=== PATIENT | female | born 1940 | race Caucasian/White ===

== ENCOUNTER 2018-05-09 10:57 | Inpatient (IN) | payer MEDICARE, OTHER ==
[~2018-05-09] VITALS: Ht 152.4 cm; Wt 61.9 kg
[~2018-05-09 10:57] MED LIST: ALPR0.5T6 PO; ATOR10TA65 PO; CALC1TAB93 PO; CARV12.579 PO; ENAL10TA PO; ESOM40CA PO; EZET10TA31 PO; FURO40TA4 PO; ISOS60TA PO; LORA-186 PO; MECL-77 PO; MULT-860 PO; NASO17 NASAL; RANI300T3 PO; SOLI5TAB2 PO; TRAM50TA PO
[2018-05-09] MEDS ORDERED: ONDANSETRON 4 MG INJ IV STA (11:18)
[2018-05-09] MEDS ORDERED: IOHEXOL 100 ML ONE (14:35)
[2018-05-09] MEDS ORDERED: SOD CHLORIDE 0.9% 100 ML ONE (14:35)
[2018-05-09] MEDS ORDERED: LOSA50TA14 PO (15:03)
[2018-05-09] MEDS ORDERED: ALPR0.5T6 PO (15:03)
[2018-05-09] MEDS ORDERED: WARF2TAB PO (15:04)
[2018-05-09] MEDS ORDERED: FURO40TA4 PO (15:05)
[2018-05-09] MEDS ORDERED: ONDA4TAB13 PO (15:05)
[2018-05-09] MEDS ORDERED: RANI300T PO (15:05)
[2018-05-09] MEDS ORDERED: CARV12.579 PO (15:06)
[2018-05-09] MEDS ORDERED: ALBU18HF INHALATION (15:06)
[2018-05-09] MEDS ORDERED: FLUT16SP17 NASAL (15:06)
[2018-05-09] MEDS ORDERED: EZET10TA31 PO (15:07)
[2018-05-09] MEDS ORDERED: ESOM40CA PO (15:07)
[2018-05-09] MEDS ORDERED: ATOR20TA38 PO (15:07)
[2018-05-09] MEDS ORDERED: FLUT1AER INHALATION (15:08)
[2018-05-09] MEDS ORDERED: SOLI5TAB2 PO (15:08)
[2018-05-09] MEDS ORDERED: POTA8CAP PO (15:09)
[2018-05-09] MEDS ORDERED: TRAM1TAB58 PO (15:11)
[2018-05-09] MEDS ORDERED: MECL-77 PO (15:12)
--- NOTE | 2018-05-09 15:55 | ERD ---
ER Documentation Chief Complaint Chief Complaint BIB RA FOR EVAL OF [place] STARTED THIS AM HPI This is an 78-year-old female who presents with intermittent left-sided weakness, as well as nausea and vomiting which started this morning, she also endorses a left-sided headache. 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 She denies visual changes, she has had no dysarthria, no dysphasia. ROS All systems reviewed and are negative except as per history of present illness. Medications Home Meds Reported Medications Meclizine Hcl* (Meclizine Hcl*) 25 Mg Tablet, 25 MG PO Q12H PRN for DIZZINESS, TAB 05/09/18 Tramadol HCl/Acetaminophen (Ultracet Tablet) 1 Each Tablet, 1 EACH PO Q6H PRN for PAIN, TAB 05/09/18 Potassium Chloride* (Potassium Chloride*) 8 Meq Capsule.er, 8 MEQ PO DAILY, CAP 05/09/18 Fluticasone-Vilanterol (Breo Ellipta Inhaler) 100-25 Mcg/Actuation Aer.pow.ba, 1 PUFF INHALATION DAILY, #1 INHALER 05/09/18 Solifenacin* (Vesicare*) 5 Mg Tablet, 5 MG PO DAILY, TAB 05/09/18 Ezetimibe* (Zetia*) 10 Mg Tablet, 10 MG PO HS, TAB 05/09/18 Esomeprazole Mag Trihydrate (Nexium) 40 Mg Capsule.dr, 40 MG PO DAILY, #30 CAP 05/09/18 Atorvastatin Calcium* (Atorvastatin Calcium*) 20 Mg Tablet, 20 MG PO QHS, #30 TAB 05/09/18 Albuterol Sulfate* (Ventolin HFA*) 18 Gm Hfa.aer.ad, 2 PUFF INHALATION Q4H, #1 INHALER 05/09/18 Carvedilol* (Carvedilol*) 12.5 Mg Tablet, 12.5 MG PO BID, #60 TAB 05/09/18 Fluticasone Propionate* (Fluticasone Propionate* Nasal) 50 Mcg/[place] - 16 Gm [place].susp, 1 SPRAY NASAL DAILY, #1 BOTTLE TO EACH NOSTRIL 05/09/18 Ondansetron Hcl* (Zofran*) 4 Mg Tab, 4 MG PO Q6H PRN for NAUSEA AND OR VOMITING, TAB 05/09/18 Ranitidine Hcl* (Ranitidine Hcl*) 300 Mg Tablet, 300 MG PO HS, #30 TAB 05/09/18 Furosemide* (Furosemide*) 40 Mg Tablet, 40 MG PO DAILY, TAB 05/09/18 Warfarin Sodium* (Coumadin*) 2 Mg Tablet, 3 MG PO DAILY, TAB 05/09/18 Alprazolam* (Alprazolam*) 0.5 Mg Tablet, 0.5 MG PO QHS PRN for ANXIETY, TAB 05/09/18 Losartan Potassium* (Losartan Potassium*) 50 Mg Tablet, 50 MG PO BID, TAB 05/09/18 Discontinued Reported Medications Mu-Vits-Min Th/Lycopene/Lutein (CENTRUM SILVER TABLET) 1 Each Tablet, 1 EACH PO DAILY, TAB 04/14/15 Calcium Carbonate/Vitamin D3 (OYSTER SHELL 500 MG + VIT D TB) 1 Each Tablet, 1 EACH PO DAILY, TAB 04/14/15 Ezetimibe* (Zetia*) 10 Mg Tablet, 10 MG PO DAILY, TAB 04/14/15 Alprazolam* (Alprazolam*) 0.5 Mg Tablet, 0.5 MG PO QHS PRN for SLEEP, TAB 04/14/15 Tramadol Hcl* (Ultram*) 50 Mg Tablet, 50 MG PO Q6H PRN for PAIN, TAB 04/14/15 Enalapril Maleate* (Enalapril Maleate*) 10 Mg Tablet, 10 MG PO BID, TAB 04/14/15 Loratadine* (Claritin*) 10 Mg Tablet, 10 MG PO DAILY, TAB 04/14/15 Solifenacin* (Vesicare*) 5 Mg Tablet, 5 MG PO DAILY, TAB 04/14/15 Mometasone Furoate* (Nasonex*) 50 Mcg/[place] - 17 Gm [place].pump, 1 SPRAY NASAL DAILY, SPRAY 04/14/15 Isosorbide Mononitrate* (Isosorbide Mononitrate*) 60 Mg Tab.er.24h, 60 MG PO DAILY, TAB 04/14/15 Esomeprazole Mag Trihydrate (Nexium) 40 Mg Capsule.dr, 40 MG PO DAILY, #30 CAP 04/14/15 Meclizine Hcl* (Meclizine Hcl*) 25 Mg Tablet, 25 MG PO BID PRN for dizzy, TAB 04/14/15 Carvedilol* (Carvedilol*) 12.5 Mg Tablet, 12.5 MG PO BID, TAB 04/14/15 Atorvastatin Calcium (Atorvastatin Calcium) 10 Mg Tablet, 20 MG PO QHS, #30 TAB 04/14/15 Furosemide (Lasix) 40 Mg Tab, 40 MG PO DAILY 06/23/11 Ranitidine Hcl* (Zantac*) 300 Mg Tab, 300 MG PO DAILY, 0 Refills 10/27/10 Allergies Allergies: Coded Allergies: No Known Allergy (Verified , 05/09/18) PMhx/Soc History of Surgery: Yes (cholecystectomy, pacemaker placment, CABG) Anesthesia Reaction: No Hx Neurological Disorder: Yes (BLUNT HEAD TRAUMA, SYNCOPE) Hx Respiratory Disorders: No Hx Cardiac Disorders: Yes (CHF, RECENT M.I., AFIB, BRADYCARDIA, ANGINA, ISCHEMIC HEART DISEASE, HTN) Hx Psychiatric Problems: No Hx Miscellaneous Medical Probl: Yes (HTN, CHF, OA, recent PR, CAD, hypercholesterlemia, Afib) Hx Alcohol Use: No Hx Substance Use: No Hx Tobacco Use: No Smoking Status: Never smoker Physical Exam Vitals Vital Signs Date Temp Pulse Resp B/P (MAP) Pulse Ox O2 O2 Flow FiO2 Time Delivery Rate 05/09/18 76 18 144/94 100 Room Air 13:13 (111) 05/09/18 98.6 74 16 186/81 96 11:03 (116) Physical Exam Const: No acute distress Head: Atraumatic Eyes: Normal Conjunctiva ENT: Normal External Ears, Nose and Mouth. Neck: Full range of motion. No meningismus. Resp: Clear to auscultation bilaterally Cardio: Regular rate and rhythm, no murmurs Abd: Soft, non tender, non distended. Normal bowel sounds Skin: No petechiae or rashes Back: No midline or flank tenderness Ext: No cyanosis, or edema Neur: Awake and alert, cranial nerves II through XII intact, strength 4 out of 5 in the lower extremity, normal finger to nose, no pronator drift Psych: Normal Mood and Affect Result Diagram: 05/09/18 1130 05/09/18 1130 Results 24 hrs Laboratory Tests Test 05/09/18 11:30 05/09/18 14:05 White Blood Count 5.2 10^3/ul Red Blood Count 4.23 10^6/ul Hemoglobin 13.1 g/dl Hematocrit 39.4 % Mean Corpuscular Volume 93.1 fl Mean Corpuscular Hemoglobin 31.0 pg Mean Corpuscular Hemoglobin Concent 33.2 g/dl Red Cell Distribution Width 12.7 % Platelet Count 157 10^3/UL Mean Platelet Volume 11.2 fl Immature Granulocytes % 0.200 % Neutrophils % 75.0 % Lymphocytes % 14.5 % Monocytes % 8.8 % Eosinophils % 1.1 % Basophils % 0.4 % Nucleated Red Blood Cells % 0.0 /100WBC Immature Granulocytes # 0.010 10^3/ul Neutrophils # 3.9 10^3/ul Lymphocytes # 0.8 10^3/ul Monocytes # 0.5 10^3/ul Eosinophils # 0.1 10^3/ul Basophils # 0.0 10^3/ul Nucleated Red Blood Cells # 0.0 10^3/ul Prothrombin Time 14.6 Sec Prothrombin Time Ratio 1.1 INR International Normalized Ratio 1.13 Sodium Level 143 mmol/L Potassium Level 3.8 mmol/L Chloride Level 105 mmol/L Carbon Dioxide Level 29 mmol/L Anion Gap 9 Blood Urea Nitrogen 12 mg/dl Creatinine 0.78 mg/dl Est Glomerular Filtrat Rate mL/min mL/min Glucose Level 130 mg/dl Calcium Level 10.1 mg/dl Total Bilirubin 1.0 mg/dl Direct Bilirubin 0.00 mg/dl Indirect Bilirubin 1.0 mg/dl Aspartate Amino Transf (AST/SGOT) 39 IU/L Alanine Aminotransferase (ALT/SGPT) 29 IU/L Alkaline Phosphatase 93 IU/L Troponin I 0.015 ng/ml Total Protein 8.6 g/dl Albumin 5.0 g/dl Globulin 3.60 g/dl Albumin/Globulin Ratio 1.38 Lipase 64 U/L Urine Color YELLOW Urine Clarity CLEAR Urine pH 7.0 Urine Specific [place] 1.003 Urine Ketones NEGATIVE mg/dL Urine Nitrite NEGATIVE mg/dL Urine Bilirubin NEGATIVE mg/dL Urine Urobilinogen NEGATIVE mg/dL Urine Leukocyte Esterase NEGATIVE Roberta/ul Urine Hemoglobin NEGATIVE mg/dL Urine Glucose NEGATIVE mg/dL Urine Total Protein NEGATIVE mg/dl Current Medications Medications Dose Sig/Erika Start Time Status Last (Trade) Ordered Route PRN Stop Time Admin Dose Reason Admin Ondansetron 4 mg ONCE STAT 05/09/18 DC 05/09/18 HCl (Zofran IV 11:18 05/09/18 12:24 Inj) 11:19 IV Flush 10 ml STK-MED 05/09/18 DC 05/09/18 (NS 10 ml) ONCE .ROUTE 14:35 05/09/18 15:02 14:36 Sodium 100 ml @ ud STK-MED 05/09/18 DC 05/09/18 Chloride ONCE .ROUTE 14:35 05/09/18 15:02 14:36 Iohexol 100 ml @ ud STK-MED 05/09/18 DC 05/09/18 ONCE .ROUTE 14:35 05/09/18 15:02 14:36 Procedures/MDM Is an 78-year-old female presents with headache and intermittent left-sided weakness. The patient had some weakness noted in her left lower extremity, although she does state that she has some residual weakness from a stroke. Her cardiac workup was overall unremarkable, her headache was not sudden in onset, and at this point I do not suspect subarachnoid hemorrhage. Her CT brain and CTA were both negative for acute findings. Based on his and physical, her differential diagnosis includes complex migraine, versus re-expression of old stroke, versus TIA. Given her significant risk factors she will be admitted to telemetry, I spoke with Dr. Sanon who will be the admitting physician. EKG: Rate/Rhythm: Atrial fibrillation with normal rate QRS, ST, T-waves: No changes consistent w/ acute ischemia Impression: No evidence of ischemia or arrhythmia Departure Diagnosis: Primary Impression: Headache Headache type: unspecified Headache chronicity pattern: acute headache Intractability: not intractable Qualified Codes: R51 - Headache Additional Impressions: Weakness Hypertension Hypertension type: essential hypertension Qualified Codes: I10 - Essential (primary) hypertension Condition: Stable MARTHA MOON MD May 09, 2018 15:55
[2018-05-09 19:42] VITALS: BP 198/95; PULSE 92; RESP 18
[2018-05-09 20:00] VITALS: PULSE 84
[2018-05-09 20:06] VITALS: Ht 152.4 cm; Wt 61.9 kg
[2018-05-09] MEDS ORDERED: LABETALOL HCL 20MG INJ IV PRN (22:00)
[2018-05-09] MEDS ORDERED: CLONIDINE 0.1 MG/24 HR PATCH TRANSDERM SCH (22:00)
[2018-05-09] MEDS ORDERED: AMLODIPINE 5 MG TAB PO ONE (22:17)
[2018-05-09 23:43] VITALS: BP 168/81; PULSE 78; RESP 19
[2018-05-10] VITALS (13 sets, daily range): BP systolic 111–175; BP diastolic 61–88; PULSE 66–93; RESP 17–19
[2018-05-10] MEDS ORDERED: MECLIZINE 25 MG TAB PO PRN (01:00)
[2018-05-10] MEDS ORDERED: ALPRAZOLAM 0.5 MG TAB PO PRN (01:00)
[2018-05-10] MEDS ORDERED: traMADol-APAP 37.5-325 1 TAB PO PRN (01:00)
[2018-05-10] MEDS: ALBUTEROL HFA 8 GM INHALER INH SCH ×6 (01:00→21:00)
[2018-05-10] MEDS ORDERED: ONDANSETRON 4 MG TAB PO PRN (01:00)
[2018-05-10] MEDS ORDERED: ENOXAPARIN 40 MG/0.4 ML SYG SC ONE (01:30)
[2018-05-10] MEDS: PANTOPRAZOLE (EC) 40 MG TAB PO SCH (07:24)
[2018-05-10] MEDS: LOSARTAN 50 MG TAB PO SCH ×2 (08:07→20:12)
[2018-05-10] MEDS: SOLIFENACIN 5 MG TAB PO SCH (08:08)
[2018-05-10] MEDS: FUROSEMIDE 40 MG TAB PO SCH (08:08)
[2018-05-10] MEDS: POTASSIUM CHLORIDE (SR) 8 MEQ CAP PO SCH (08:08)
[2018-05-10] MEDS: AMLODIPINE 5 MG TAB PO SCH ×2 (08:09→20:12)
[2018-05-10] MEDS: FLUTICASONE 0.05% 16 GM NAS SPRAY NASAL SCH (08:17)
--- NOTE | 2018-05-10 08:58 | CONS ---
Date/Time of Note Date/Time of Note DATE: 05/10/18 TIME: 08:58 Assessment/Plan Assessment/Plan Result Diagram: 05/10/18 0518 05/09/18 1130 Results 24hrs Laboratory Tests Test 05/09/18 11:30 05/09/18 14:05 05/10/18 01:22 05/10/18 05:18 White Blood Count 5.2 5.8 Red Blood Count 4.23 4.08 L Hemoglobin 13.1 12.3 Hematocrit 39.4 37.6 Mean Corpuscular Volume 93.1 92.2 Mean Corpuscular 31.0 30.1 Hemoglobin Mean Corpuscular 33.2 32.7 Hemoglobin Concent Red Cell Distribution 12.7 12.8 Width Platelet Count 157 160 Mean Platelet Volume 11.2 H 11.3 H Immature Granulocytes % 0.200 0.300 Neutrophils % 75.0 63.5 Lymphocytes % 14.5 L 23.3 Monocytes % 8.8 11.2 H Eosinophils % 1.1 1.4 Basophils % 0.4 0.3 Nucleated Red Blood 0.0 0.0 Cells % Immature Granulocytes # 0.010 0.020 Neutrophils # 3.9 3.7 Lymphocytes # 0.8 1.4 Monocytes # 0.5 0.7 Eosinophils # 0.1 0.1 Basophils # 0.0 0.0 Nucleated Red Blood 0.0 0.0 Cells # Prothrombin Time 14.6 15.5 H Prothrombin Time Ratio 1.1 1.2 INR International 1.13 1.22 Normalized Ratio Sodium Level 143 Potassium Level 3.8 Chloride Level 105 Carbon Dioxide Level 29 Anion Gap 9 Blood Urea Nitrogen 12 Creatinine 0.78 Est Glomerular Filtrat Rate mL/min Glucose Level 130 Calcium Level 10.1 Total Bilirubin 1.0 Direct Bilirubin 0.00 Indirect Bilirubin 1.0 Aspartate Amino 39 Transf (AST/SGOT) Alanine 29 Aminotransferase (ALT/SG PT) Alkaline Phosphatase 93 Troponin I 0.015 Total Protein 8.6 H Albumin 5.0 H Globulin 3.60 H Albumin/Globulin Ratio 1.38 Lipase 64 Urine Color YELLOW Urine Clarity CLEAR Urine pH 7.0 Urine Specific [place] 1.003 Urine Ketones NEGATIVE Urine Nitrite NEGATIVE Urine Bilirubin NEGATIVE Urine Urobilinogen NEGATIVE Urine Leukocyte Esterase NEGATIVE Urine Hemoglobin NEGATIVE Urine Glucose NEGATIVE Urine Total Protein NEGATIVE Magnesium Level 2.1 Iron Level 84 Total Iron Binding 322 Capacity Percent Iron Saturation 26 Thyroid Stimulating 1.270 Hormone (TSH) B-Type Natriuretic 1500 H Peptide Consultation Date/Type/Reason Admit Date/Time May 09, 2018 at 14:45 Past Medical History Medications Current Medications Clonidine HCl (Catapres-Tts 1 Patch) 1 patch Q7D TRANSDERM Last administered on 05/09/18at 22:44; Admin Dose 1 PATCH; Start 05/09/18 at 22:00 Amlodipine Besylate (Norvasc) 5 mg BID PO Last administered on 05/10/18at 08:09; Admin Dose 5 MG; Start 05/10/18 at 09:00 Labetalol HCl (Labetalol) 10 mg Q1H PRN IV ELEVATED SYSTOLIC BP Last adminis tered on 05/10/18at 00:38; Admin Dose 10 MG; Start 05/09/18 at 22:00 Albuterol (Ventolin Hfa) 2 puff Q4H RESP THERAPY INH ; Start 05/10/18 at 01:00 Alprazolam (Xanax) 0.5 mg QHS PRN PO ANXIETY; Start 05/10/18 at 01:00 Atorvastatin Calcium (Lipitor) 20 mg QHS PO ; Start 05/10/18 at 21:00 Carvedilol (Coreg) 12.5 mg BID PO Last administered on 05/10/18at 08:08; Admin Dose 12.5 MG; Start 05/10/18 at 09:00 EZETIMIBE (Zetia) 10 mg HS PO ; Start 05/10/18 at 21:00 Fluticasone Propionate (Flonase 0.05% Nasal) 1 spray DAILY NASAL ; Start 05/10/18 at 09:00 Furosemide (Lasix) 40 mg DAILY PO Last administered on 05/10/18at 08:08; Admin Dose 40 MG; Start 05/10/18 at 09:00 Losartan Potassium (Cozaar) 50 mg BID PO Last administered on 05/10/18at 08:07; Admin Dose 50 MG; Start 05/10/18 at 09:00 Meclizine HCl (Antivert) 25 mg Q12H PRN PO DIZZINESS; Start 05/10/18 at 01:00 Ondansetron HCl (Zofran Tab) 4 mg Q6H PRN PO NAUSEA AND/OR VOMITING; Start 05/10/18 at 01:00 Potassium Chloride (Micro-K) 8 meq DAILY PO Last administered on 05/10/18at 08:08; Admin Dose 8 MEQ; Start 05/10/18 at 09:00 Solifenacin (Vesicare) 5 mg DAILY PO Last administered on 05/10/18at 08:08; Admin Dose 5 MG; Start 05/10/18 at 09:00 Tramadol HCl (Ultracet) 1 tab Q12H PRN PO PAIN; Start 05/10/18 at 01:00 Pantoprazole (Protonix Tab) 40 mg DAILY@06 PO Last administered on 05/10/18at 07:24; Admin Dose 40 MG; Start 05/10/18 at 06:00 Allergies: Coded Allergies: No Known Allergy (Verified , 05/09/18) Past Surgical History Past Surgical Hx: other Social History Smoking Status: Never smoker Exam/Review of Systems Vital Signs Vitals Vital Signs Date Temp Pulse Resp B/P (MAP) Pulse Ox O2 O2 Flow FiO2 Time Delivery Rate 05/10/18 83 08:50 05/10/18 98.9 18 175/88 93 07:20 (117) 05/09/18 Room Air 18:30 Intake and Output 05/09/18 05/09/18 05/10/18 1515:00 23:00 07:00 IntakeIntake Total 100 ml OutputOutput Total 650 ml BalanceBalance -550 ml Medications Medications Current Medications Clonidine HCl (Catapres-Tts 1 Patch) 1 patch Q7D TRANSDERM Last administered on 05/09/18at 22:44; Admin Dose 1 PATCH; Start 05/09/18 at 22:00 Amlodipine Besylate (Norvasc) 5 mg BID PO Last administered on 05/10/18at 08:09; Admin Dose 5 MG; Start 05/10/18 at 09:00 Labetalol HCl (Labetalol) 10 mg Q1H PRN IV ELEVATED SYSTOLIC BP Last administered on 05/10/18at 00:38; Admin Dose 10 MG; Start 05/09/18 at 22:00 Albuterol (Ventolin Hfa) 2 puff Q4H RESP THERAPY INH ; Start 05/10/18 at 01:00 Alprazolam (Xanax) 0.5 mg QHS PRN PO ANXIETY; Start 05/10/18 at 01:00 Atorvastatin Calcium (Lipitor) 20 mg QHS PO ; Start 05/10/18 at 21:00 Carvedilol (Coreg) 12.5 mg BID PO Last administered on 05/10/18at 08:08; Admin Dose 12.5 MG; Start 05/10/18 at 09:00 EZETIMIBE (Zetia) 10 mg HS PO ; Start 05/10/18 at 21:00 Fluticasone Propionate (Flonase 0.05% Nasal) 1 spray DAILY NASAL ; Start 05/10/18 at 09:00 Furosemide (Lasix) 40 mg DAILY PO Last administered on 05/10/18at 08:08; Admin Dose 40 MG; Start 05/10/18 at 09:00 Losartan Potassium (Cozaar) 50 mg BID PO Last administered on 05/10/18at 08:07; Admin Dose 50 MG; Start 05/10/18 at 09:00 Meclizine HCl (Antivert) 25 mg Q12H PRN PO DIZZINESS; Start 05/10/18 at 01:00 Ondansetron HCl (Zofran Tab) 4 mg Q6H PRN PO NAUSEA AND/OR VOMITING; Start 05/10/18 at 01:00 Potassium Chloride (Micro-K) 8 meq DAILY PO Last administered on 05/10/18at 08:08; Admin Dose 8 MEQ; Start 05/10/18 at 09:00 Solifenacin (Vesicare) 5 mg DAILY PO Last administered on 05/10/18at 08:08; Admin Dose 5 MG; Start 05/10/18 at 09:00 Tramadol HCl (Ultracet) 1 tab Q12H PRN PO PAIN; Start 05/10/18 at 01:00 Pantoprazole (Protonix Tab) 40 mg DAILY@06 PO Last administered on 05/10/18at 07:24; Admin Dose 40 MG; Start 05/10/18 at 06:00 AGNES NAVARRETE May 10, 2018 08:58
[2018-05-10] MEDS ORDERED: NON-FORMULARY/PATIENT OWN MED (Esomeprazole Mag Trihydrate (Nexium) 40 MG) PO SCH (09:00)
--- NOTE | 2018-05-10 09:23 | HP ---
Date/Time of Note Date/Time of Note DATE: 05/10/18 TIME: 09:14 Assessment/Plan VTE Prophylaxis Risk score (from Ns)>0 risk: 4 SCD applied (from Ns): Yes SCD contraindicated: low risk/ambulating Pharmacological prophylaxis: LMWH Lines/Catheters IV Catheter Type (from [facility]): [place] line still needed: No Urinary Cath still in place: No Reason Cath still needed: urinary retention Assessment/Plan Assessment/Plan 1. TIA recurrent 2. Status post pacemaker implantation about 5 years ago. 3. Status post possibly aortic valve replacement about 15 years ago. 4. Hypertension. 5. Atrial fibrillation with better controlled ventricular rate. In the past, she had a bradycardia and that was a main indication of placing a pacemaker. 6. CHF exacerbation. 7. Ischemic heart disease, angina, status post recent DE about a week ago. 8. Dyslipidemia. 9. Allergic reactions. 10. Dizziness. 11. Osteoarthritis. 12. Grief reaction. 13. Back pain. 14. Current syncopal episode. 15. Status post cholecystectomy. 16.Denies history of tuberculosis. 17. Denies history of having diabetes mellitus. 18. Denies any seizure episodes. CT of neck vessels: 1. Extensive calcification at the right carotid bifurcation with up to 50% stenosis of the proximal right ICA. 2. Moderate calcification at the left carotid bifurcation, with 10% stenosis of the left proximal ICA. 3. Moderate calcification with mild narrowing of the right vertebral artery origin. Otherwise normal patency of the cervical vertebral arteries. 4. Mild narrowing of the bilateral cavernous and supraclinoid internal carotid arteries, with moderate calcification on the left, and mild to moderate calcification on the right. 5. Otherwise normal patency of the intracranial arterial vasculature. origin right posterior cerebral artery, anatomic variant. 6. Focal narrowing of the right internal jugular vein related to the right C1 transverse process and adjacent styloid process. This may be positional/incidental. 7. Right thyroid nodule, [address] of the head: 1. No acute intracranial hemorrhage, transcortical infarction or mass effect. 2. Mild intracranial atherosclerosis and mild to moderate chronic small vessel ischemic changes. 3. Small old lacunar infarcts in the left frontal and right parietal periven tricular white matter and right cerebellum. 4. Mild to moderate generalized cerebral and cerebellar volume loss. CT of abdomen: 1. No evidence of acute intra-abdominal/pelvic inflammatory process. No evidence of bowel obstruction. Colonic diverticulosis. The appendix is within normal limits. 2. Status post cholecystectomy. 3. No gross renal/ureteric calculi. Minimal bilateral hydronephrosis. The bladder is distended. Recommend decompression. 4. Diffuse colonic diverticulosis without evidence of diverticulitis. 5. Atherosclerotic disease of the aorta. 6. No evidence of free fluid or free air. No gross focal fluid collections. Result Diagram: 05/10/18 0518 05/09/18 1130 Results 24hrs Laboratory Tests Test 05/09/18 11:30 05/09/18 14:05 05/10/18 01:22 05/10/18 05:18 White Blood Count 5.2 5.8 Red Blood Count 4.23 4.08 L Hemoglobin 13.1 12.3 Hematocrit 39.4 37.6 Mean Corpuscular Volume 93.1 92.2 Mean Corpuscular 31.0 30.1 Hemoglobin Mean Corpuscular 33.2 32.7 Hemoglobin Concent Red Cell Distribution 12.7 12.8 Width Platelet Count 157 160 Mean Platelet Volume 11.2 H 11.3 H Immature Granulocytes % 0.200 0.300 Neutrophils % 75.0 63.5 Lymphocytes % 14.5 L 23.3 Monocytes % 8.8 11.2 H Eosinophils % 1.1 1.4 Basophils % 0.4 0.3 Nucleated Red Blood 0.0 0.0 Cells % Immature Granulocytes # 0.010 0.020 Neutrophils # 3.9 3.7 Lymphocytes # 0.8 1.4 Monocytes # 0.5 0.7 Eosinophils # 0.1 0.1 Basophils # 0.0 0.0 Nucleated Red Blood 0.0 0.0 Cells # Prothrombin Time 14.6 15.5 H Prothrombin Time Ratio 1.1 1.2 INR International 1.13 1.22 Normalized Ratio Sodium Level 143 Potassium Level 3.8 Chloride Level 105 Carbon Dioxide Level 29 Anion Gap 9 Blood Urea Nitrogen 12 Creatinine 0.78 Est Glomerular Filtrat Rate mL/min Glucose Level 130 Calcium Level 10.1 Total Bilirubin 1.0 Direct Bilirubin 0.00 Indirect Bilirubin 1.0 Aspartate Amino 39 Transf (AST/SGOT) Alanine 29 Aminotransferase (ALT/SG PT) Alkaline Phosphatase 93 Troponin I 0.015 Total Protein 8.6 H Albumin 5.0 H Globulin 3.60 H Albumin/Globulin Ratio 1.38 Lipase 64 Urine Color YELLOW Urine Clarity CLEAR Urine pH 7.0 Urine Specific Isabel 1.003 Urine Ketones NEGATIVE Urine Nitrite NEGATIVE Urine Bilirubin NEGATIVE Urine Urobilinogen NEGATIVE Urine Leukocyte Esterase NEGATIVE Urine Hemoglobin NEGATIVE Urine Glucose NEGATIVE Urine Total Protein NEGATIVE Magnesium Level 2.1 Iron Level 84 Total Iron Binding 322 Capacity Percent Iron Saturation 26 Thyroid Stimulating 1.270 Hormone (TSH) B-Type Natriuretic 1500 H Peptide HPI/ROS Admit Date/Time Admit Date/Time May 09, 2018 at 14:45 ROS Subjective hx not possible: pt critical Constitutional: chills, diaphoresis, disoriented, nausea, poor po, weight change (She lost about 3 pounds during the last 2 months.); No no complaints, No improved, No fatigue, No febrile, No other Eyes: visual change; No no complaints, No pain, No discharge, No redness, No other ENT: congestion; No no complaints, No bleeding, No pain, No discharge, No dysphagia, No sore throat, No other Respiratory: cough, shortness of breath; No no complaints, No pain, No pleuritic pain, No sputum, No wheezing, No other Cardiovascular: chest pain, lightheadedness, orthopenea, palpitations, paroxysmal nocturnal dyspnea; No no complaints, No edema, No other Gastrointestinal: constipation (On and off she is having diarrhea too.), flatus, passing stool; No no complaints, No pain, No blood, No decreased appetite, No diarrhea, No nausea, No vomiting, No other Genitourinary: flank pain; No no complaints, No bleeding, No dysuria, No discharge, No hematuria, No other Musculoskeletal: back pain, bone/joint pain Skin: erythema, pruritis, rash; No no complaints, No bruising, No laceration, No skin lesions, No other Neurologic: confusion, dizziness, headache; No no complaints, No focal-weakness, No syncope, No seizure, No other Endocrine: polyuria, dry skin Lymphatic: tender nodes; No no complaints, No adenopathy, No lymphadema, No other Psychological: nl mood/affect, anxiety, confusion; No no complaints, No depression, No suicidal, No other Immunologic: No no complaints, No immunodeficiency, No pruritis, No rhinitis, No urticaria, No other PMH/Family/Social Past Medical History Medical History: angina, congestive heart failure, coronary artery disease, gallstones, GERD, high cholesterol, hypertension, irritable bowel syndrome Medications Current Medications Clonidine HCl (Catapres-Tts 1 Patch) 1 patch Q7D TRANSDERM Last administered on 05/09/18at 22:44; Admin Dose 1 PATCH; Start 05/09/18 at 22:00 Amlodipine Besylate (Norvasc) 5 mg BID PO Last administered on 05/10/18at 08:09; Admin Dose 5 MG; Start 05/10/18 at 09:00 Labetalol HCl (Labetalol) 10 mg Q1H PRN IV ELEVATED SYSTOLIC BP Last administered on 05/10/18at 00:38; Admin Dose 10 MG; Start 05/09/18 at 22:00 Albuterol (Ventolin Hfa) 2 puff Q4H RESP THERAPY INH ; Start 05/10/18 at 01:00 Alprazolam (Xanax) 0.5 mg QHS PRN PO ANXIETY; Start 05/10/18 at 01:00 Atorvastatin Calcium (Lipitor) 20 mg QHS PO ; Start 05/10/18 at 21:00 Carvedilol (Coreg) 12.5 mg BID PO Last administered on 05/10/18at 08:08; Admin Dose 12.5 MG; Start 05/10/18 at 09:00 EZETIMIBE (Zetia) 10 mg HS PO ; Start 05/10/18 at 21:00 Fluticasone Propionate (Flonase 0.05% Nasal) 1 spray DAILY NASAL ; Start 05/10/18 at 09:00 Furosemide (Lasix) 40 mg DAILY PO Last administered on 05/10/18at 08:08; Admin Dose 40 MG; Start 05/10/18 at 09:00 Losartan Potassium (Cozaar) 50 mg BID PO Last administered on 05/10/18at 08:07; Admin Dose 50 MG; Start 05/10/18 at 09:00 Meclizine HCl (Antivert) 25 mg Q12H PRN PO DIZZINESS; Start 05/10/18 at 01:00 Ondansetron HCl (Zofran Tab) 4 mg Q6H PRN PO NAUSEA AND/OR VOMITING; Start 05/10/18 at 01:00 Potassium Chloride (Micro-K) 8 meq DAILY PO Last administered on 05/10/18at 08:08; Admin Dose 8 MEQ; Start 05/10/18 at 09:00 Solifenacin (Vesicare) 5 mg DAILY PO Last administered on 05/10/18at 08:08; Admin Dose 5 MG; Start 05/10/18 at 09:00 Tramadol HCl (Ultracet) 1 tab Q12H PRN PO PAIN; Start 05/10/18 at 01:00 Pantoprazole (Protonix Tab) 40 mg DAILY@06 PO Last administered on 05/10/18at 07:24; Admin Dose 40 MG; Start 05/10/18 at 06:00 Coded Allergies: No Known Allergy (Verified , 05/09/18) Past Surgical History Past Surgical Hx: angioplasty, other (Status post aortic valve replacement.) Family History Significant Family History: heart disease Social History Alcohol Use: none Smoking Status: Never smoker Drug Use: none Exam/Review of Systems Vital Signs Vitals Vital Signs Date Temp Pulse Resp B/P (MAP) Pulse Ox O2 O2 Flow FiO2 Time Delivery Rate 05/10/18 83 08:50 05/10/18 98.9 18 175/88 93 07:20 (117) 05/09/18 Room Air 18:30 Intake and Output 05/09/18 05/09/18 05/10/18 1515:00 23:00 07:00 IntakeIntake Total 100 ml OutputOutput Total 650 ml BalanceBalance -550 ml Exam Constitutional: alert, oriented, well developed, distress, frail, other (Very anxious times unable to comprehend why this involuntary contractions are happening with her.) Psych: nl mood/affect, anxiety, depression; No no complaints, No confusion, No suicidal, No other Head: normocephalic, atraumatic; No lacerations, No hematomas, No other Eyes: EOMI, nl lids, PERRL; No nl conjunctiva, No nl sclera, No icteric, No fundi, disc, No other ENMT: No nl external ears & nose, No nl lips & teeth, No nl nasal mucosa & septum, No mucosa pink and moist, No intubated, No tympanic membranes, No other Neck: supple, jvd, bruits, nuchal rigidity; No non-tender, No masses, No thyromegaly, No other Respiratory: clear to auscultation, normal air movement, diminished breath sounds; No congested cough, No crackles/rales, No intercostal retraction, No labored breathing, No respirations, No tactile fremitus, No wheezing, No other Cardiovascular: nl pulses, bruits, systolic murmur; No regular rate and rhythm, No diastolic murmur, No edema, No gallop, No irregular rhythm, No jugular venous distention (JVD), No murmurs/extra sounds, No rub, No S3, No S4, No other Gastrointestinal: soft, nl liver, spleen, non-tender, bowel sounds; No ascites, No distended, No firm, No hepatomegaly, No mass, No rebound or guarding, No splenomegaly, No surgical scars, No tender, No other Genitourinary - Female: nl adnexae, nl external genitalia; No CMT, No CVA tenderness, No uterus, No other Musculoskeletal: nl gait and stance (Gait is unstable however no episodes of fall in the right home or while coming to the hospital.), joint tenderness, muscle tone, muscle weakness (Muscle tone and positive for severe muscular weakness particularly left side of the body which is going and coming with creation of a numbness and tingling sensations.), range of motion; No nl extremities to inspection, No spine non-tender, No swelling, No other Extremities: No normal pulses, No calf tenderness, No cyanosis, No clubbing, No edema, No pitting pedal edema, No palpable cord, No tenderness, No other Neurological: GOVERNMENT [employer]UDIT[employer] II-XII intact (.), confused; No nl mental status, No nl speech, No nl strength, No DTR's symmetric, No focal weakness, No lethargic, No numbness, No reflexes, No unresponsive, No other Skin: nl turgor; No rash or lesions, No diaphoresis, No ecchymosis, No laceration, No puncture, No other Lymph: nl lymph nodes; No enlarged, No nontender, No other CARLI FRIEND MD May 10, 2018 09:23
[2018-05-10] MEDS: ACETAMINOPHEN 325 MG TAB PO PRN ×2 (11:53→20:13)
--- NOTE | 2018-05-10 15:46 | RADRPT ---
Echocardiogram Report Patient Name: DAVEY HUSSEIN Gender: Female Date: 1940 Study Date: 10-May-2018 Senior Accounting Associate: Holden Thomas [facility] Location: [facility] Ref. Physician: CARLI FRIEND Quality: Adequate Procedures: Transthoracic echocardiogram with complete 2D, M-Mode, and doppler examination. Indications: Elevated blood pressure, neck CTA results. 2D/M Mode Doppler Measurement Value Normal Ranges Measurement Value Normal Ranges LVIDd 2D 3.3 3.5 - 5.6 cm AV Peak Vance 1.5 m/sec LVIDs 2D 2.6 2.1 - 4.1 cm AV Peak PG 9.0 mmHg LVPWd 2D 0.9 0.6 - 1.1 cm AI Peak PG 59.0 mmHg IVSd 2D 1.0 0.6 - 1.1 cm AI Peak Vance 3.8 m/sec AoR Diam 2D 2.7 2.0 - 3.7 cm AI PHT 674.0 msec LA/Ao 2D 1 0 - 1 LVOT Peak Vance 1.1 m/sec LA Dimen 2D 3.8 2.3 - 4.0 cm LVOT Peak PG 5.0 mmHg MV E Peak Vance 1.4 m/sec MV Peak Vance 1.4 m/sec MV Peak PG 8.0 mmHg MV Mean Vance 0.8 m/sec MV Mean PG 3.0 mmHg MV Decel Time 148 msec MV VTI 28.4 cm TR Peak Vance 2.6 m/sec TR Peak PG 26.0 mmHg RVSP 34.0 mmHg RA Pressure 8.0 Findings Left Ventricle: Normal left ventricular systolic function. Normal left ventricular cavity size. Normal left ventricular wall thickness. Ejection fraction is visually estimated at 65 %. Right Ventricle: Normal right ventricular size. Normal right ventricular systolic function. Pacemaker right heart. Left Atrium: The left atrium is normal in size. Right Atrium: The right atrium is normal in size. Mitral Valve: Mitral Valve Mechanical Prosthesis. Mitral valve Max Velocity 1.43 m/sec. MaxPG 8.00 mmHg. MeanPG 3.00 mmHg. Aortic Valve: No hemodynamically significant aortic stenosis by doppler. Aortic cusps appear mildly calcified. Mild aortic valve regurgitation. Tricuspid Valve: Normal appearance of the tricuspid valve. Estimated peak PA systolic pressure 34 mmHg. There is mild tricuspid regurgitation. Pulmonic Valve: Normal pulmonic valve appearance. Pericardium: Normal pericardium with no significant pericardial effusion. Aorta: Normal aortic root. IVC: Dilated IVC with respiratory collapse consistent with elevated right atrial pressure. Conclusions Normal left ventricular function with EF 65%. Normal right ventricular function. Cannot assess diastolic function. No severe valvular disease. s/p MVR (mechanical) with normal function (mean gradient 3 mmHg). No pericardial effusion. Electronically Signed By: Vincent Miranda 10-May-2018 15:45:51 -0800 Patient Name: DAVEY HUSSEIN Study Date: 10-May-2018 [id number]
[2018-05-10] MEDS ORDERED: hydrALAzine 20 MG INJ IV PRN (19:30)
[2018-05-10] MEDS: ATORVASTATIN 20 MG TAB PO SCH (20:12)
[2018-05-10] MEDS: EZETIMIBE 10 MG TAB PO SCH (20:13)
[2018-05-10] MEDS ORDERED: RANITIDINE 150 MG TAB PO SCH (21:00)
[2018-05-11] VITALS (12 sets, daily range): BP systolic 103–137; BP diastolic 54–71; PULSE 62–87; RESP 16–18
[2018-05-11] MEDS: ALBUTEROL HFA 8 GM INHALER INH SCH ×6 (01:00→20:37)
[2018-05-11] MEDS: PANTOPRAZOLE (EC) 40 MG TAB PO SCH (05:30)
[2018-05-11] MEDS: SOLIFENACIN 5 MG TAB PO SCH (08:25)
[2018-05-11] MEDS: FLUTICASONE 0.05% 16 GM NAS SPRAY NASAL SCH (08:25)
[2018-05-11] MEDS: AMLODIPINE 5 MG TAB PO SCH ×2 (08:26→20:36)
[2018-05-11] MEDS: LOSARTAN 50 MG TAB PO SCH ×2 (08:26→20:37)
[2018-05-11] MEDS: FUROSEMIDE 40 MG TAB PO SCH (08:26)
[2018-05-11] MEDS: POTASSIUM CHLORIDE (SR) 8 MEQ CAP PO SCH (08:27)
[2018-05-11] MEDS: CLOPIDOGREL 75 MG TAB PO SCH (16:15)
[2018-05-11] MEDS: ENOXAPARIN 30 MG/0.3 ML SYG SC SCH (16:24)
[2018-05-11] MEDS: ATORVASTATIN 20 MG TAB PO SCH (20:36)
[2018-05-11] MEDS: EZETIMIBE 10 MG TAB PO SCH (20:36)
[2018-05-11] MEDS: ACETAMINOPHEN 325 MG TAB PO PRN (20:36)
--- NOTE | 2018-05-11 22:36 | PN ---
Date/Time of Note Date/Time of Note DATE: 05/11/18 TIME: 22:35 Assessment/Plan VTE Prophylaxis Risk score (from Nsg)>0 risk: 6 SCD applied (from Ns): Yes SCD contraindicated: low risk/ambulating Pharmacological prophylaxis: LMWH Lines/Catheters IV Catheter Type (from Nrs): Peripheral IV Central line still needed: No Urinary Cath still in place: No Reason Cath still needed: urinary retention Assessment/Plan Assessment/Plan 1. TIA recurrent with improvement of the left sided weakness and occasional involuntary contractions of both upper extremities. Significantly decreased compared with yesterday. 2. Status post pacemaker implantation about 5 years ago. 3. Status post possibly aortic valve replacement about 15 years ago. 4. Hypertension. 5. Atrial fibrillation with better controlled ventricular rate. In the past, she had a bradycardia and that was a main indication of placing a pacemaker. 6. CHF exacerbation. 7. Ischemic heart disease, angina, status post recent [place] about a week ago. 8. Dyslipidemia. 9. Allergic reactions. 10. Dizziness. 11. Osteoarthritis. 12. Grief reaction. 13. Back pain. 14. Current syncopal episode. 15. Status post cholecystectomy. 16.Denies history of tuberculosis. 17. Denies history of having diabetes mellitus. 18. Denies any seizure episodes. CT of neck vessels: 1. Extensive calcification at the right carotid bifurcation with up to 50% stenosis of the proximal right ICA. 2. Moderate calcification at the left carotid bifurcation, with 10% stenosis of the left proximal ICA. 3. Moderate calcification with mild narrowing of the right vertebral artery origin. Otherwise normal patency of the cervical vertebral arteries. 4. Mild narrowing of the bilateral cavernous and supraclinoid internal carotid arteries, with moderate calcification on the left, and mild to moderate calcification on the right. 5. Otherwise normal patency of the intracranial arterial vasculature. origin right posterior cerebral artery, anatomic variant. 6. Focal narrowing of the right internal jugular vein related to the right C1 transverse process and adjacent styloid process. This may be positional/incidental. 7. Right thyroid nodule, [address] of the head: 1. No acute intracranial hemorrhage, transcortical infarction or mass effect. 2. Mild intracranial atherosclerosis and mild to moderate chronic small vessel ischemic changes. 3. Small old lacunar infarcts in the left frontal and right parietal periventricular white matter and right cerebellum. 4. Mild to moderate generalized cerebral and cerebellar volume loss. CT of abdomen: 1. No evidence of acute intra-abdominal/pelvic inflammatory process. No evidence of bowel obstruction. Colonic diverticulosis. The appendix is within normal limits. 2. Status post cholecystectomy. 3. No gross renal/ureteric calculi. Minimal bilateral hydronephrosis. The bladder is distended. Recommend decompression. 4. Diffuse colonic diverticulosis without evidence of diverticulitis. 5. Atherosclerotic disease of the aorta. 6. No evidence of free fluid or free air. No gross focal fluid collections. Result Diagram: 05/10/18 0518 05/09/18 1130 Subjective 24 Hr Interval Summary Free Text/Dictation I have no twithching movements today. Weakness of the left side of the body disappeared. Yesterday there was physical therapy boy who supported very well and that was looking more confidently. Today the lady was supporting me and I did not feel so comfortable but I was able to walk while she was holding a belt and supporting with a wheelchair. Constitutional: poor po, requiring O2; No no complaints, No improved, No chills, No diaphoresis, No disoriented, No febrile, No requiring IVF, No other Eyes: No no complaints, No pain, No discharge, No redness, No visual change, No other ENT: No no complaints, No bleeding, No pain, No congestion, No discharge, No dysphagia, No sore throat, No other Respiratory: shortness of breath; No no complaints, No pain, No cough, No pleuritic pain, No sputum, No wheezing, No other Cardiovascular: No no complaints, No chest pain, No edema, No lightheadedness, No orthopenea, No palpitations, No paroxysmal nocturnal dyspnea, No other Gastrointestinal: constipation, flatus, passing stool; No no complaints, No pain, No blood, No decreased appetite, No diarrhea, No nausea, No vomiting, No other Genitourinary: dysuria, flank pain; No no complaints, No bleeding, No discharge, No hematuria, No other Musculoskeletal: back pain, bone/joint pain, neck pain; No no complaints, No restricted range of motion, No swelling, No other Skin: No no complaints, No bruising, No erythema, No laceration, No pruritis, No rash, No skin lesions, No other Neurologic: No no complaints, No confusion, No dizziness, No focal-weakness, No headache, No syncope, No seizure, No other Endocrine: dry skin; No no complaints, No polyuria, No polydypsia, No temp intolerance, No other Lymphatic: No no complaints, No adenopathy, No tender nodes, No lymphadema, No other Psychological: anxiety, confusion; No no complaints, No nl mood/affect, No depression, No suicidal, No other Immunologic: No no complaints, No immunodeficiency, No pruritis, No rhinitis, No urticaria, No other Exam/Review of Systems Vital Signs Vitals Vital Signs Date Temp Pulse Resp B/P (MAP) Pulse Ox O2 O2 Flow FiO2 Time Delivery Rate 05/11/18 71 20:00 05/11/18 98.7 17 103/56 91 19:32 (72) 05/10/18 Room Air 15:10 Intake and Output 05/10/18 05/10/18 05/11/18 1515:00 23:00 07:00 IntakeIntake Total 1200 ml 480 ml BalanceBalance 1200 ml 480 ml Exam Constitutional: alert, oriented, well developed, distress, frail; No non-verbal, No obese, No other Psych: anxiety; No no complaints, No nl mood/affect, No confusion, No depression, No suicidal, No other Eyes: EOMI, nl lids, PERRL; No nl conjunctiva, No nl sclera, No icteric, No fundi, disc, No other ENMT: No nl external ears & nose, No nl lips & teeth, No nl nasal mucosa & septum, No mucosa pink and moist, No intubated, No tympanic membranes, No other Neck: jvd, bruits, nuchal rigidity; No supple, No non-tender, No masses, No thyromegaly, No other Respiratory: clear to auscultation, normal air movement, diminished breath sounds; No congested cough, No crackles/rales, No intercostal retraction, No labored breathing, No respirations, No tactile fremitus, No wheezing, No other Cardiovascular: regular rate and rhythm, bruits; No nl pulses, No diastolic murmur, No edema, No gallop, No irregular rhythm, No jugular venous distention (JVD), No murmurs/extra sounds, No rub, No systolic murmur, No S3, No S4, No other Gastrointestinal: soft, nl liver, spleen, non-tender, bowel sounds; No ascites, No distended, No firm, No hepatomegaly, No mass, No rebound or guarding, No splenomegaly, No surgical scars, No tender, No other Genitourinary - Female: nl adnexae, nl external genitalia; No CMT, No CVA tenderness, No uterus, No other Musculoskeletal: joint tenderness; No nl extremities to inspection, No nl gait and stance, No muscle tone, No muscle weakness, No range of motion, No spine non-tender, No swelling, No other Extremities: No normal pulses, No calf tenderness, No cyanosis, No clubbing, No edema, No pitting pedal edema, No palpable cord, No tenderness, No other Neurological: BINDERY TECHNICIAN II-XII intact, numbness, other (No focal deficit.); No nl mental status, No nl speech, No nl strength, No confused, No DTR's symmetric, No focal weakness, No lethargic, No reflexes, No unresponsive Skin: nl turgor (Decreased.); No rash or lesions, No diaphoresis, No ecchymosis, No laceration, No puncture, No other Lymph: No nl lymph nodes, No enlarged, No nontender, No other Medications Medications Current Medications Clonidine HCl (Catapres-Tts 1 Patch) 1 patch Q7D TRANSDERM Last administered on 05/09/18 22:44; Admin Dose 1 PATCH; Start 05/09/18 at 22:00 Amlodipine Besylate (Norvasc) 5 mg BID PO Last administered on 05/11/18 20:36; Admin Dose 5 MG; Start 05/10/18 at 09:00 Labetalol HCl (Labetalol) 10 mg Q1H PRN IV ELEVATED SYSTOLIC BP Last administered on 05/10/18 00:38; Admin Dose 10 MG; Start 05/09/18 at 22:00 Albuterol (Ventolin Hfa) 2 puff Q4H RESP THERAPY INH Last administered on 05/11/18 20:37; Admin Dose 2 PUFF; Start 05/10/18 at 01:00 Alprazolam (Xanax) 0.5 mg QHS PRN PO ANXIETY Last administered on 05/10/18 20:14; Admin Dose 0.5 MG; Start 05/10/18 at 01:00 Atorvastatin Calcium (Lipitor) 20 mg QHS PO Last administered on 05/11/18 20:36; Admin Dose 20 MG; Start 05/10/18 at 21:00 Carvedilol (Coreg) 12.5 mg BID PO Last administered on 05/11/18 20:37; Admin Dose 12.5 MG; Start 05/10/18 at 09:00 EZETIMIBE (Zetia) 10 mg HS PO Last administered on 05/11/18 20:36; Admin Dose 10 MG; Start 05/10/18 at 21:00 Fluticasone Propionate (Flonase 0.05% Nasal) 1 spray DAILY NASAL ; Start 05/10/18 at 09:00 Furosemide (Lasix) 40 mg DAILY PO Last administered on 05/11/18 08:26; Admin Dose 40 MG; Start 05/10/18 at 09:00 Losartan Potassium (Cozaar) 50 mg BID PO Last administered on 05/11/18 20:37; Admin Dose 50 MG; Start 05/10/18 at 09:00 Meclizine HCl (Antivert) 25 mg Q12H PRN PO DIZZINESS; Start 05/10/18 at 01:00 Ondansetron HCl (Zofran Tab) 4 mg Q6H PRN PO NAUSEA AND/OR VOMITING; Start 05/10/18 at 01:00 Potassium Chloride (Micro-K) 8 meq DAILY PO Last administered on 05/11/18 08:27; Admin Dose 8 MEQ; Start 05/10/18 at 09:00 Solifenacin (Vesicare) 5 mg DAILY PO Last administered on 05/11/18 08:25; Admin Dose 5 MG; Start 05/10/18 at 09:00 Tramadol HCl (Ultracet) 1 tab Q12H PRN PO PAIN; Start 05/10/18 at 01:00 Pantoprazole (Protonix Tab) 40 mg DAILY@06 PO Last administered on 05/11/18 05:30; Admin Dose 40 MG; Start 05/10/18 at 06:00 Acetaminophen (Tylenol Tab) 650 mg Q6H PRN PO MILD PAIN(1-3)OR ELEVATED TEMP Last administered on 05/11/18 20:36; Admin Dose 650 MG; Start 05/10/18 at 12:00 Hydralazine HCl (Apresoline) 10 mg Q4H PRN IV for SBP >170mmHg; Start 05/10/18 at 19:30 Clopidogrel Bisulfate (plaVIX) 75 mg DAILY PO Last administered on 05/11/18at 16:15; Admin Dose 75 MG; Start 05/11/18 at 15:30 Enoxaparin Sodium (Lovenox) 30 mg DAILY SC Last administered on 05/11/18at 16:24; Admin Dose 30 MG; Start 05/11/18 at 15:30 CARLI FRIEND MD May 11, 2018 22:36
[2018-05-12] VITALS (12 sets, daily range): BP systolic 103–114; BP diastolic 51–68; PULSE 60–86; RESP 16–18
[2018-05-12] MEDS: ALBUTEROL HFA 8 GM INHALER INH SCH ×6 (01:00→20:25)
[2018-05-12] MEDS: PANTOPRAZOLE (EC) 40 MG TAB PO SCH (06:16)
[2018-05-12] MEDS: FLUTICASONE 0.05% 16 GM NAS SPRAY NASAL SCH (08:26)
[2018-05-12] MEDS: ENOXAPARIN 30 MG/0.3 ML SYG SC SCH (08:26)
[2018-05-12] MEDS: SOLIFENACIN 5 MG TAB PO SCH (08:27)
[2018-05-12] MEDS: FUROSEMIDE 40 MG TAB PO SCH (08:28)
[2018-05-12] MEDS: AMLODIPINE 5 MG TAB PO SCH ×2 (08:28→20:23)
[2018-05-12] MEDS: POTASSIUM CHLORIDE (SR) 8 MEQ CAP PO SCH (08:28)
[2018-05-12] MEDS: LOSARTAN 50 MG TAB PO SCH ×2 (08:28→20:23)
[2018-05-12] MEDS: CLOPIDOGREL 75 MG TAB PO SCH (08:28)
--- NOTE | 2018-05-12 11:10 | HKNOTE ---
DATE OF SERVICE: REFERRING PHYSICIAN: David Danielle Thank you, Dr. Hernandez, for asking me to see the patient with you. HISTORY OF PRESENT ILLNESS: Patient is an 78 years old lady with acute onset of left-sided weakness associated with nausea and vomiting in which the patient was admitted to [facility] for more evaluation and treatment. PAST MEDICAL HISTORY: The patient has a past medical history of: 1. Stroke in the past. 2. Hypertension. 3. Dyslipidemia. 4. Atrial fibrillation with the patient on Coumadin upon admission. I received a call about her for more evaluation and treatment. MEDICATIONS: Include: 1. Lipitor 20 mg once a day. 2. Zetia 10 mg once a day. 3. Tylenol 650 mg every 6 hours as needed. 4. Norvasc 5 mg twice a day. 5. Coreg 12.5 mg twice a day. 6. Lasix 40 mg p.o. once a day. 7. Cozaar 50 mg twice a day. 8. Protonix 40 mg once a day. 9. Ventolin inhaler as needed. 10. Antivert 25 mg twice a day. 11. Zofran 4 mg every 4 hours as needed. 12. Tramadol 50 mg twice a day. 13. Clonidine as needed. 14. Lipitor 10 mg as needed. PAST MEDICAL HISTORY: Includes stroke twice in the past, atrial fibrillation, dyslipidemia, status p ost pacemaker implantation 5 years ago, aortic valve replacement 15 years ago, hypertension, congesti ve heart failure, ischemic heart disease, dizziness, osteoarthritis, back ache, syncopal attack. PAST SURGICAL HISTORY: Includes cholecystectomy, pacemaker implantation. PHYSICAL EXAMINATION: GENERAL: Today, the patient is alert, awake, and follows simple commands; however, difficult for sec ond or third-step commands with word finding difficulty. CRANIAL NERVES: Cranial nerve II: Pupils equal both sides, reactive to light. Cranial nerves III, IV and : Extraocular muscles are intact without nystagmus. Cranial nerve V: Equal sensation to f gloria. Cranial nerve VII: Symmetrical face. Cranial nerve VII Decreased nasolabial fold on the left side. Cranial nerve VIII: Decreased hearing bilaterally. Cranial nerve IX and X: Elevates palate. Cranial nerve XI: Elevates shoulder. Cranial nerve XII: With straight tongue. MOTOR: Left side is 4+/5. Sensation decreased in the left side for light touch and temperature. COORDINATION: [id number] test intact. HEART: Regular rate and rhythm with atrial fibrillation under good control. LUNGS: Equal breath sounds. ABDOMEN: Soft, relaxed. ASSESSMENT AND PLAN: 1. The patient is 78 years old status post acute onset of syncopal attack, with the possibility of u nderlying transient ischemic attack. Will follow up the patient with MRI of her brain. 2. Left-sided weakness with some improvement, could be related to the TIA versus stroke. We will fo llow up the patient with MRI. The patient has multiple risk factors for stroke in the form of atrial fibrillation, hypertension, dyslipidemia, prior stroke in the past. 3. For syncopal attack. We will keep the patient under fall precaution for now and I follow up here with electroencephalogram for possible underlying seizure activities. 4. Dyslipidemia. Continue the patient on Lipitor as well as Zetia data which the patient takes curr ently. 5. Hypertension. Keep the blood pressure at the level of 130/80. 6. Atrial fibrillation with the patient on anticoagulation; however, because of the syncopal attack she might not be a candidate for anticoagulation. The patient under good control with telemetry and her rate is 73 with atrial fibrillation, but the fact the patient had a syncopal attack she might not be a good candidate for anticoagulation. I might start the patient on Plavix from now 75 mg for str eri prophylaxis and will order for head MRI whole brain and reevaluate her gait and her balance to se e if the patient is a candidate for anticoagulation. Again, thank you so much, Dr. Hernandez, for asking me to see the patient with you. Dictated By: QUIN MILLER MD NA/NTS Conf#: [id number] DID#: [id number] CC: LEONARDA PANDEY MD; CARLI HERNANDEZ MD;*EndCC*
--- NOTE | 2018-05-12 16:56 | PN ---
Date/Time of Note Date/Time of Note DATE: 05/12/18 TIME: 16:50 Assessment/Plan VTE Prophylaxis Risk score (from Nsg)>0 risk: 5 SCD applied (from Ns): Yes SCD contraindicated: low risk/ambulating Pharmacological prophylaxis: other Lines/Catheters IV Catheter Type (from Nrsg): Peripheral IV Central line still needed: No Urinary Cath still in place: No Reason Cath still needed: urinary retention Assessment/Plan Assessment/Plan 1. TIA recurrent with improvement of the left sided weakness and no more involuntary contractions of both upper extremities. 2. Status post pacemaker implantation about 5 years ago. 3. Status post possibly aortic valve replacement about 15 years ago. 4. Hypertension. 5. Atrial fibrillation with better controlled ventricular rate. In the past, she had a bradycardia and that was a main indication of placing a pacemaker. 6. CHF exacerbation. 7. Ischemic heart disease, angina, status post recent [place] about a week ago. 8. Dyslipidemia. 9. Allergic reactions. 10. Dizziness. 11. Osteoarthritis. 12. Grief reaction. 13. Back pain. 14. Current syncopal episode. 15. Status post cholecystectomy. 16.Denies history of tuberculosis. 17. Denies history of having diabetes mellitus. 18. Denies any seizure episodes. CT of neck vessels: 1. Extensive calcification at the right carotid bifurcation with up to 50% stenosis of the proximal right ICA. 2. Moderate calcification at the left carotid bifurcation, with 10% stenosis of the left proximal ICA. 3. Moderate calcification with mild narrowing of the right vertebral artery origin. Otherwise normal patency of the cervical vertebral arteries. 4. Mild narrowing of the bilateral cavernous and supraclinoid internal carotid arteries, with moderate calcification on the left, and mild to moderate calcification on the right. 5. Otherwise normal patency of the intracranial arterial vasculature. origin right posterior cerebral artery, anatomic variant. 6. Focal narrowing of the right internal jugular vein related to the right C1 transverse process and adjacent styloid process. This may be positional/incidental. 7. Right thyroid nodule, [address] of the head: 1. No acute intracranial hemorrhage, transcortical infarction or mass effect. 2. Mild intracranial atherosclerosis and mild to moderate chronic small vessel ischemic changes. 3. Small old lacunar infarcts in the left frontal and right parietal periventricular white matter and right cerebellum. 4. Mild to moderate generalized cerebral and cerebellar volume loss. CT of abdomen: 1. No evidence of acute intra-abdominal/pelvic inflammatory process. No evidence of bowel obstruction. Colonic diverticulosis. The appendix is within normal limits. 2. Status post cholecystectomy. 3. No gross renal/ureteric calculi. Minimal bilateral hydronephrosis. The bladder is distended. Recommend decompression. 4. Diffuse colonic diverticulosis without evidence of diverticulitis. 5. Atherosclerotic disease of the aorta. 6. No evidence of free fluid or free air. No gross focal fluid collections. Result Diagram: 05/10/18 0518 05/09/18 1130 Subjective 24 Hr Interval Summary Free Text/Dictation I feel better. No more ambulatory contractions. I do not feel any weakness in the left side of my body which still was dilated with yesterday. Unable to get up but I am dizzy. They are helping me to walk I feel more comfortable Constitutional: poor po, requiring O2; No no complaints, No improved, No chills, No diaphoresis, No disoriented, No febrile, No requiring IVF, No other Eyes: redness; No no complaints, No pain, No discharge, No visual change, No other ENT: congestion; No no complaints, No bleeding, No pain, No discharge, No dysphagia, No sore throat, No other Respiratory: cough, shortness of breath; No no complaints, No pain, No pleuritic pain, No sputum, No wheezing, No other Cardiovascular: chest pain, lightheadedness, orthopenea, palpitations; No no complaints, No edema, No paroxysmal nocturnal dyspnea, No other Gastrointestinal: constipation, flatus, nausea; No no complaints, No pain, No blood, No decreased appetite, No diarrhea, No passing stool, No vomiting, No other Genitourinary: dysuria; No no complaints, No bleeding, No discharge, No flank pain, No hematuria, No other Musculoskeletal: back pain, bone/joint pain, neck pain; No no complaints, No restricted range of motion, No swelling, No other Skin: No no complaints, No bruising, No erythema, No laceration, No pruritis, No rash, No skin lesions, No other Neurologic: dizziness, headache; No no complaints, No confusion, No focal-weakness, No syncope, No seizure, No other Psychological: anxiety; No no complaints, No nl mood/affect, No confusion, No depression, No suicidal, No other Exam/Review of Systems Vital Signs Vitals Vital Signs Date Temp Pulse Resp B/P (MAP) Pulse Ox O2 O2 Flow FiO2 Time Delivery Rate 05/12/18 98.0 66 16 110/59 96 15:20 (76) 05/10/18 Room Air 15:10 Intake and Output 05/11/18 05/11/18 05/12/18 1515:00 23:00 07:00 IntakeIntake Total 850 ml 250 ml BalanceBalance 850 ml 250 ml Exam Constitutional: alert, oriented, well developed, distress, frail; No non-verbal, No obese, No other Psych: No no complaints, No nl mood/affect, No anxiety, No confusion, No depression, No suicidal, No other Head: normocephalic, atraumatic; No lacerations, No hematomas, No other Eyes: EOMI, nl lids, PERRL; No nl conjunctiva, No nl sclera, No icteric, No fundi, disc, No other ENMT: nl nasal mucosa & septum; No nl external ears & nose, No nl lips & teeth, No mucosa pink and moist, No intubated, No tympanic membranes, No other Neck: supple, jvd, bruits, nuchal rigidity; No non-tender, No masses, No thyromegaly, No other Respiratory: clear to auscultation, normal air movement, congested cough, diminished breath sounds, wheezing; No crackles/rales, No intercostal retraction, No labored breathing, No respirations, No tactile fremitus, No other Cardiovascular: regular rate and rhythm, bruits, systolic murmur; No nl pulses, No diastolic murmur, No edema, No gallop, No irregular rhythm, No jugular venous distention (JVD), No murmurs/extra sounds, No rub, No S3, No S4, No other Gastrointestinal: soft, nl liver, spleen, bowel sounds; No non-tender, No ascites, No distended, No firm, No hepatomegaly, No mass, No rebound or guarding, No splenomegaly, No surgical scars, No tender, No other Genitourinary - Female: nl adnexae, nl external genitalia; No CMT, No CVA tenderness, No uterus, No other Musculoskeletal: nl gait and stance (Unstable gait needs at least 1 person support to be able to walk.), joint tenderness, muscle tone, muscle weakness; No nl extremities to inspection, No range of motion, No spine non-tender, No swelling, No other Extremities: No normal pulses, No calf tenderness, No cyanosis, No clubbing, No edema, No pitting pedal edema, No palpable cord, No tenderness, No other Neurological: RESAW FEEDER II-XII intact (Hearing impairment.), nl mental status (More cooperative more soft speaking and expressing him about improvement), numbness ( without signs of confusion.); No nl speech, No nl strength, No confused, No DTR's symmetric, No focal weakness, No lethargic, No reflexes, No unresponsive, No other Skin: nl turgor (Decreased.) Lymph: nl lymph nodes; No enlarged, No nontender, No other Medications Medications Current Medications Clonidine HCl (Catapres-Tts 1 Patch) 1 patch Q7D TRANSDERM Last administered on 05/09/18 22:44; Admin Dose 1 PATCH; Start 05/09/18 at 22:00 Amlodipine Besylate (Norvasc) 5 mg BID PO Last administered on 05/12/18 08:28; Admin Dose 5 MG; Start 05/10/18 at 09:00 Labetalol HCl (Labetalol) 10 mg Q1H PRN IV ELEVATED SYSTOLIC BP Last administered on 05/10/18 00:38; Admin Dose 10 MG; Start 05/09/18 at 22:00 Albuterol (Ventolin Hfa) 2 puff Q4H RESP THERAPY INH Last administered on 05/12/18 13:00; Admin Dose 2 PUFF; Start 05/10/18 at 01:00 Alprazolam (Xanax) 0.5 mg QHS PRN PO ANXIETY Last administered on 05/10/18 20:14; Admin Dose 0.5 MG; Start 05/10/18 at 01:00 Atorvastatin Calcium (Lipitor) 20 mg QHS PO Last administered on 05/11/18 20:36; Admin Dose 20 MG; Start 05/10/18 at 21:00 Carvedilol (Coreg) 12.5 mg BID PO Last administered on 05/12/18 08:27; Admin Dose 12.5 MG; Start 05/10/18 at 09:00 EZETIMIBE (Zetia) 10 mg HS PO Last administered on 05/11/18 20:36; Admin Dose 10 MG; Start 05/10/18 at 21:00 Fluticasone Propionate (Flonase 0.05% Nasal) 1 spray DAILY NASAL Last administered on 05/12/18 08:26; Admin Dose 1 SPRAY; Start 05/10/18 at 09:00 Furosemide (Lasix) 40 mg DAILY PO Last administered on 05/12/18 08:28; Admin Dose 40 MG; Start 05/10/18 at 09:00 Losartan Potassium (Cozaar) 50 mg BID PO Last administered on 05/12/18 08:28; A dmin Dose 50 MG; Start 05/10/18 at 09:00 Meclizine HCl (Antivert) 25 mg Q12H PRN PO DIZZINESS; Start 05/10/18 at 01:00 Ondansetron HCl (Zofran Tab) 4 mg Q6H PRN PO NAUSEA AND/OR VOMITING; Start 05/10/18 at 01:00 Potassium Chloride (Micro-K) 8 meq DAILY PO Last administered on 05/12/18 08:28; Admin Dose 8 MEQ; Start 05/10/18 at 09:00 Solifenacin (Vesicare) 5 mg DAILY PO Last administered on 05/12/18 08:27; Admin Dose 5 MG; Start 05/10/18 at 09:00 Tramadol HCl (Ultracet) 1 tab Q12H PRN PO PAIN; Start 05/10/18 at 01:00 Pantoprazole (Protonix Tab) 40 mg DAILY@06 PO Last administered on 05/12/18 06 :16; Admin Dose 40 MG; Start 05/10/18 at 06:00 Acetaminophen (Tylenol Tab) 650 mg Q6H PRN PO MILD PAIN(1-3)OR ELEVATED TEMP Last administered on 05/11/18 20:36; Admin Dose 650 MG; Start 05/10/18 at 12:00 Hydralazine HCl (Apresoline) 10 mg Q4H PRN IV for SBP >170mmHg; Start 05/10/18 at 19:30 Clopidogrel Bisulfate (plaVIX) 75 mg DAILY PO Last administered on 05/12/18 08:28; Admin Dose 75 MG; Start 05/11/18 at 15:30 Enoxaparin Sodium (Lovenox) 30 mg DAILY SC Last administered on 05/12/18at 08:26; Admin Dose 30 MG; Start 05/11/18 at 15:30 CARLI FRIEND MD May 12, 2018 16:56
[2018-05-12] MEDS: EZETIMIBE 10 MG TAB PO SCH (20:22)
[2018-05-12] MEDS: ATORVASTATIN 20 MG TAB PO SCH (20:23)
[2018-05-13] VITALS (9 sets, daily range): BP systolic 102–123; BP diastolic 55–63; PULSE 65–85; RESP 18
[2018-05-13] MEDS: ALBUTEROL HFA 8 GM INHALER INH SCH ×5 (01:00→16:08)
[2018-05-13] MEDS: PANTOPRAZOLE (EC) 40 MG TAB PO SCH (05:12)
[2018-05-13] MEDS: FLUTICASONE 0.05% 16 GM NAS SPRAY NASAL SCH (08:37)
[2018-05-13] MEDS: POTASSIUM CHLORIDE (SR) 8 MEQ CAP PO SCH (08:38)
[2018-05-13] MEDS: CLOPIDOGREL 75 MG TAB PO SCH (08:38)
[2018-05-13] MEDS: SOLIFENACIN 5 MG TAB PO SCH (08:38)
[2018-05-13] MEDS: LOSARTAN 50 MG TAB PO SCH (08:43)
[2018-05-13] MEDS: AMLODIPINE 5 MG TAB PO SCH (08:44)
[2018-05-13] MEDS: FUROSEMIDE 40 MG TAB PO SCH (08:44)
--- NOTE | 2018-05-13 08:55 | PDOCDIS ---
Discharge Instructions CONDITION Tkeie2Rd Patient Condition: Aemom4j Fair HOME CARE INSTRUCTIONS: [id number] Diet Instructions: Wdrbz4d Reduced Sodium Dkblm6Oy Special Diet: Vxlvp3z cardiac ACTIVITY: Upjig8Mx Activity Restrictions: Irjha1g Slowly Increase Activity Lealu7Pe Bathing Restrictions: Zlcmy2g Shower FOLLOW UP/APPOINTMENTS Follow-up Plan To primary care physician in [address] Cardozo in 1 week SCHOOL/WORK RELEASE May return to School/Work with: With Restrictions (no.) CARLI FRIEND MD May 13, 2018 08:54
[2018-05-13] MEDS ORDERED: CLOP75TA28 PO (08:56)
--- NOTE | 2018-05-13 09:03 | DS ---
Date/Time of Note Date/Time of Note DATE: 05/13/18 TIME: 08:59 Discharge Summary Admission/Discharge Info Admit Date/Time May 11, 2018 at 11:59 Discharge Date/Time May 13, 2018 at 11 AM Discharge Diagnosis 1. TIA recurrent with improvement of the left sided weakness and no more involuntary contractions of both upper extremities. 2. Status post pacemaker implantation about 5 years ago. 3. Status post possibly aortic valve replacement about 15 years ago. 4. Hypertension. 5. Atrial fibrillation with better controlled ventricular rate. In the past, she had a bradycardia and that was a main indication of placing a pacemaker. 6. CHF exacerbation. 7. Ischemic heart disease, angina, status post recent NE about a week ago. 8. Dyslipidemia. 9. Allergic reactions. 10. Dizziness. 11. Osteoarthritis. 12. Grief reaction. 13. Back pain. 14. Current syncopal episode. 15. Status post cholecystectomy. 16.Denies history of tuberculosis. 17. Denies history of having diabetes mellitus. 18. Denies any seizure episodes. CT of neck vessels: 1. Extensive calcification at the right carotid bifurcation with up to 50% stenosis of the proximal right ICA. 2. Moderate calcification at the left carotid bifurcation, with 10% stenosis of the left proximal ICA. 3. Moderate calcification with mild narrowing of the right vertebral artery origin. Otherwise normal patency of the cervical vertebral arteries. 4. Mild narrowing of the bilateral cavernous and supraclinoid internal carotid arteries, with moderate calcification on the left, and mild to moderate calcification on the right. 5. Otherwise normal patency of the intracranial arterial vasculature. origin right posterior cerebral artery, anatomic variant. 6. Focal narrowing of the right internal jugular vein related to the right C1 transverse process and adjacent styloid process. This may be positional/incidental. 7. Right thyroid nodule, [address] of the head: 1. No acute intracranial hemorrhage, transcortical infarction or mass effect. 2. Mild intracranial atherosclerosis and mild to moderate chronic small vessel ischemic changes. 3. Small old lacunar infarcts in the left frontal and right parietal periventricular white matter and right cerebellum. 4. Mild to moderate generalized cerebral and cerebellar volume loss. CT of abdomen: 1. No evidence of acute intra-abdominal/pelvic inflammatory process. No evidence of bowel obstruction. Colonic diverticulosis. The appendix is within normal limits. 2. Status post cholecystectomy. 3. No gross renal/ureteric calculi. Minimal bilateral hydronephrosis. The bladder is distended. Recommend decompression. 4. Diffuse colonic diverticulosis without evidence of diverticulitis. 5. Atherosclerotic disease of the aorta. 6. No evidence of free fluid or free air. No gross focal fluid collections. Patient Condition: Fair Hospital Course Her gait is not steady at she needs outpatient physical therapy to be continued mainly for gait training and muscle strengthening and attempting to teach her to avoid the deconditioning. Her asthma is controlled blood pressure is better controlled shortness of breath had improved no more tics. And no hemiplegia on the left side. I will follow the patient if for some reason primary care is u nable to do that in 3-5 days as an outpatient. Home Meds Active Scripts Clopidogrel Bisulfate (Clopidogrel) 75 Mg Tablet, 75 MG PO DAILY for 30 Days, #30 TAB Prov:CARLI FRIEND MD 05/13/18 Reported Medications Meclizine Hcl* (Meclizine Hcl*) 25 Mg Tablet, 25 MG PO Q12H PRN for DIZZINESS, TAB 05/09/18 Tramadol HCl/Acetaminophen (Ultracet Tablet) 1 Each Tablet, 1 EACH PO Q6H PRN for PAIN, TAB 05/09/18 Potassium Chloride* (Potassium Chloride*) 8 Meq Capsule.er, 8 MEQ PO DAILY, CAP 05/09/18 Fluticasone-Vilanterol (Breo Ellipta Inhaler) 100-25 Mcg/Actuation Aer.pow.ba, 1 PUFF INHALATION DAILY, #1 INHALER 05/09/18 Solifenacin* (Vesicare*) 5 Mg Tablet, 5 MG PO DAILY, TAB 05/09/18 Ezetimibe* (Zetia*) 10 Mg Tablet, 10 MG PO HS, TAB 05/09/18 Esomeprazole Mag Trihydrate (Nexium) 40 Mg Capsule.dr, 40 MG PO DAILY, #30 CAP 05/09/18 Atorvastatin Calcium* (Atorvastatin Calcium*) 20 Mg Tablet, 20 MG PO QHS, #30 TAB 05/09/18 Albuterol Sulfate* (Ventolin HFA*) 18 Gm Hfa.aer.ad, 2 PUFF INHALATION Q4H, #1 INHALER 05/09/18 Carvedilol* (Carvedilol*) 12.5 Mg Tablet, 12.5 MG PO BID, #60 TAB 05/09/18 Fluticasone Propionate* (Fluticasone Propionate* Nasal) 50 Mcg/[place] - 16 Gm [place].susp, 1 SPRAY NASAL DAILY, #1 BOTTLE TO EACH NOSTRIL 05/09/18 Ondansetron Hcl* (Zofran*) 4 Mg Tab, 4 MG PO Q6H PRN for NAUSEA AND OR VOMITING, TAB 05/09/18 Ranitidine Hcl* (Ranitidine Hcl*) 300 Mg Tablet, 300 MG PO HS, #30 TAB 05/09/18 Furosemide* (Furosemide*) 40 Mg Tablet, 40 MG PO DAILY, TAB 05/09/18 Warfarin Sodium* (Coumadin*) 2 Mg Tablet, 3 MG PO DAILY, TAB 05/09/18 Alprazolam* (Alprazolam*) 0.5 Mg Tablet, 0.5 MG PO QHS PRN for ANXIETY, TAB 05/09/18 Losartan Potassium* (Losartan Potassium*) 50 Mg Tablet, 50 MG PO BID, TAB 05/09/18 Discontinued Reported Medications Mu-Vits-Min Th/Lycopene/Lutein (CENTRUM SILVER TABLET) 1 Each Tablet, 1 EACH PO DAILY, TAB 04/14/15 Calcium Carbonate/Vitamin D3 (OYSTER SHELL 500 MG + VIT D TB) 1 Each Tablet, 1 EACH PO DAILY, TAB 04/14/15 Ezetimibe* (Zetia*) 10 Mg Tablet, 10 MG PO DAILY, TAB 04/14/15 Alprazolam* (Alprazolam*) 0.5 Mg Tablet, 0.5 MG PO QHS PRN for SLEEP, TAB 04/14/15 Tramadol Hcl* (Ultram*) 50 Mg Tablet, 50 MG PO Q6H PRN for PAIN, TAB 04/14/15 Enalapril Maleate* (Enalapril Maleate*) 10 Mg Tablet, 10 MG PO BID, TAB 04/14/15 Loratadine* (Claritin*) 10 Mg Tablet, 10 MG PO DAILY, TAB 04/14/15 Solifenacin* (Vesicare*) 5 Mg Tablet, 5 MG PO DAILY, TAB 04/14/15 Mometasone Furoate* (Nasonex*) 50 Mcg/[place] - 17 Gm [place].pump, 1 SPRAY NASAL DAILY, SPRAY 04/14/15 Isosorbide Mononitrate* (Isosorbide Mononitrate*) 60 Mg Tab.er.24h, 60 MG PO DAILY, TAB 04/14/15 Esomeprazole Mag Trihydrate (Nexium) 40 Mg Capsule.dr, 40 MG PO DAILY, #30 CAP 04/14/15 Meclizine Hcl* (Meclizine Hcl*) 25 Mg Tablet, 25 MG PO BID PRN for dizzy, TAB 04/14/15 Carvedilol* (Carvedilol*) 12.5 Mg Tablet, 12.5 MG PO BID, TAB 04/14/15 Atorvastatin Calcium (Atorvastatin Calcium) 10 Mg Tablet, 20 MG PO QHS, #30 TAB 04/14/15 Furosemide (Lasix) 40 Mg Tab, 40 MG PO DAILY 06/23/11 Ranitidine Hcl* (Zantac*) 300 Mg Tab, 300 MG PO DAILY, 0 Refills 10/27/10 Follow-up Plan To primary care physician in 3 days To vertical roll operator Dr. Cardozo in 1 week Primary Care Provider Not On Staff Doctor CARLI FRIEND MD May 13, 2018 09:03
--- NOTE | 2018-05-14 00:41 | HKNOTE ---
DATE OF SERVICE: HISTORY OF PRESENT ILLNESS: The patient is 78 years old, admitted with recurrent TIA with a left romeo e weakness with improvement. The patient with atrial fibrillation, hypertension, which are controlle d. The patient had a syncopal attack with tendency to fall in which we will start her on Plavix for stroke prophylaxis because of the balance difficulty as the patient cannot handle coagulation. The p atient with a CAT scan shows old lacunar infarction at the right parietal periventricular area of the right cerebellum and left frontal area. MEDICATIONS: The patient's current medications which includes: 1. Plavix 75 mg once a day. 2. Meclizine 25 mg 3 times a day as needed. 3. Tramadol 50 mg every 6 hours as needed. 4. Lipitor 20 mg once a day. 5. Carvedilol 12.5 mg twice a day as needed. 6. Zofran 4 mg every 4 hours. 7. Ranitidine 300 mg once a day. 8. Lasix 40 mg once a day. 9. Alprazolam 0.5 mg once a day. 10. Losartan 50 mg once a day. PAST MEDICAL HISTORY: Including stroke, hypertension, dyslipidemia, atrial fibrillation. The patien t was on Coumadin upon admission; however, INR was low. PHYSICAL EXAMINATION: GENERAL: Today, the patient is alert, awake, following simple commands, speaks [place]; however, di d follow second or third-step commands. CRANIAL NERVES: Cranial nerve II: Pupils equal on both sides, reactive to light. Cranial nerves II I, IV and : Extraocular muscles are intact without nystagmus. Cranial nerve V: Equal sensation t o face. Cranial nerve VII: Symmetrical face. Cranial nerve VII: Decreased nasolabial fold on the left side. Cranial nerve VIII: Decreased hearing bilaterally. Cranial nerves IX and X: Elevates p alate. Cranial nerve XI: Elevates shoulder 5/5. Cranial nerve XII: With straight tongue. MOTOR: Left side 4+/5, improvement. Sensation decreased in the left side for light touch and temper ature. COORDINATION: Zuqudn-os-zdly test intact. HEART: Irregular irregularity with AFib under good control between 70 to 80. LUNGS: Equal breath sounds. ABDOMEN: Soft, relaxed, nondistended, no tenderness. ASSESSMENT AND PLAN: 1. The patient is 78 years old status post TIA which we will start the patient on Plavix 75 mg once a day. 2. Syncopal attack. Keep the patient on fall precaution for now. 3. Atrial fibrillation, will continue the patient on Plavix. The patient is not a candidate for ant icoagulation because of syncopal attack and tendency to fall. 4. Dyslipidemia in which the patient is on Lipitor and Zetia. 5. Hypertension. Keep the blood pressure at the level of 130/80. Again, thank you, Dr. Friend, for asking me to see the patient with you. Dictated By: QUIN MILLER MD NA/NTS Conf#: [id number] DID#: [id number] CC: CARLI FRIEND MD;*End*
== END 2018-05-13 17:30 | disposition home health service (06) | DRG 69 ==
LOC: E/R 10:57 → 6WM 14:45 → EDBEDREQ 15:33 → OBSVTOIN 05-11 11:59
PROVIDERS: ADMIT Family Medicine; ATTEND Family Medicine
DX: G45.9 Transient cerebral ischemic attack, unspecified (principal); I48.91 Unspecified atrial fibrillation; Z79.01 Long term (current) use of anticoagulants; E78.5 Hyperlipidemia, unspecified; I10 Essential (primary) hypertension; Z95.0 Presence of cardiac pacemaker; Z95.2 Presence of prosthetic heart valve
CPT/HCPCS: 36415; 70450; 70496; 70498; 71045; 74176; 80053; 81003; 83540; 83690; 83735; 83880; 84443; 84484; 85025; 85610; 87040; 93005; 93306; 93970; 95819; 96374; 97116; 97161; 97530; G0378; J1650; J2405; Q9967

== ENCOUNTER 2018-06-25 05:45 | Day surgery (SDC) | payer MEDICARE, OTHER ==
[2018-06-24 09:40] VITALS: Ht 154.9 cm; Wt 61.4 kg
[2018-06-25] VITALS (9 sets, daily range): BP systolic 124–172; BP diastolic 64–81; PULSE 82–92; RESP 14–34
[~2018-06-25] VITALS: Ht 154.9 cm; Wt 61.4 kg
[~2018-06-25 05:45] MED LIST changes: -ATOR10TA65 PO; +ATOR20TA38 PO; -CALC1TAB93 PO; +CLOP75TA28 PO; -ENAL10TA PO; +FLUT16SP17 NASAL; +FLUT1AER INHALATION; -ISOS60TA PO; -LORA-186 PO; +LOSA50TA14 PO; -MULT-860 PO; -NASO17 NASAL; +ONDA4TAB13 PO; +POTA8CAP PO; +RANI300T PO; -RANI300T3 PO; +TRAM1TAB58 PO; -TRAM50TA PO
[2018-06-25] MEDS ORDERED: DIAZEPAM 5 MG TAB PO ONE (06:00)
[2018-06-25] MEDS ORDERED: CEFAZOLIN 1 GM/50 ML (PMX) 50 ML IVPB ONE (06:00)
[2018-06-25] MEDS ORDERED: SOD CHLORIDE 0.45% 1,000 ML IV SCH (06:00)
[2018-06-25] MEDS ORDERED: WARF1TAB PO (06:52)
[2018-06-25] MEDS ORDERED: WARF2TAB PO (06:52)
[2018-06-25] MEDS ORDERED: PROPOFOL 20 ML ONE (07:00)
[2018-06-25] MEDS ORDERED: FENTAnyl 50 MCG/ML VIAL ONE (07:00)
[2018-06-25] MEDS ORDERED: CEFAZOLIN 1 GM INJ ONE (07:00)
[2018-06-25] MEDS ORDERED: LIDOCAINE 2% (SDV) 5 ML INJ ONE (07:00)
[2018-06-25] MEDS ORDERED: LIDOCAINE 0.5% (MDV) 50 ML INJ ONE (07:01)
[2018-06-25] MEDS ORDERED: POLYMYXIN/BACITRACIN 1L IRRIG ONE (07:01)
--- NOTE | 2018-06-25 07:07 | PREAC ---
Date/Time of Note Date/Time of Note DATE: 06/25/18 TIME: 07:04 Anesthesia Eval and Record Evaluation Time Pre-Procedure Interview DATE: 06/25/18 TIME: 07:04 Age 78 Sex female NPO: 8 hrs Preoperative diagnosis AICD battery change due, CHF. Planned procedure AICD battery change Past Medical History Past Medical History: Includes Cardio: HTN, Dyslipidemia, GA, CAD, Arrythmia (afib), PPM/AICD, CHF (EF 40% on 04/2015), Other (s/p aortic valve replacement) Musculoskeletal: Osteoarthritis, Other (chronic back pain) GI: GERD (well controlled) Surgery & Anesthesia Issues No known issue Meds Anticoagulation: Yes (last dose Coumadin last per pt and son report ) Beta Jaya within 24 hr: No Reason Beta Jaya not given: Pt. not on B-Jaya Reported Medications Warfarin Sodium* (Coumadin*) 2 Mg Tablet, 2 MG PO EVERY OTHER DAY, TAB 06/25/18 Warfarin Sodium* (Coumadin*) 1 Mg Tablet, 1 MG PO EVERY OTHER DAY, TAB 06/25/18 Meclizine Hcl* (Meclizine Hcl*) 25 Mg Tablet, 25 MG PO Q12H PRN for DIZZINESS, TAB 05/09/18 Tramadol HCl/Acetaminophen (Ultracet Tablet) 1 Each Tablet, 1 EACH PO Q6H PRN for PAIN, TAB 05/09/18 Potassium Chloride* (Potassium Chloride*) 8 Meq Capsule.er, 8 MEQ PO DAILY, CAP 05/09/18 Fluticasone-Vilanterol (Breo Ellipta Inhaler) 100-25 Mcg/Actuation Aer.pow.ba, 1 PUFF INHALATION DAILY, #1 INHALER 05/09/18 Solifenacin* (Vesicare*) 5 Mg Tablet, 5 MG PO DAILY, TAB 05/09/18 Ezetimibe* (Zetia*) 10 Mg Tablet, 10 MG PO HS, TAB 05/09/18 Esomeprazole Mag Trihydrate (Nexium) 40 Mg Capsule.dr, 40 MG PO DAILY, #30 CAP 05/09/18 Atorvastatin Calcium* (Atorvastatin Calcium*) 20 Mg Tablet, 20 MG PO QHS, #30 TAB 05/09/18 Carvedilol* (Carvedilol*) 12.5 Mg Tablet, 12.5 MG PO BID, #60 TAB 05/09/18 Fluticasone Propionate* (Fluticasone Propionate* Nasal) 50 Mcg/[place] - 16 Gm [place].susp, 1 SPRAY NASAL DAILY, #1 BOTTLE TO EACH NOSTRIL 05/09/18 Ondansetron Hcl* (Zofran*) 4 Mg Tab, 4 MG PO Q6H PRN for NAUSEA AND OR VOMITING, TAB 05/09/18 Ranitidine Hcl* (Ranitidine Hcl*) 300 Mg Tablet, 300 MG PO HS, #30 TAB 05/09/18 Furosemide* (Furosemide*) 40 Mg Tablet, 40 MG PO DAILY, TAB 05/09/18 Alprazolam* (Alprazolam*) 0.5 Mg Tablet, 0.5 MG PO QHS PRN for ANXIETY, TAB 05/09/18 Losartan Potassium* (Losartan Potassium*) 50 Mg Tablet, 50 MG PO BID, TAB 05/09/18 Discontinued Scripts Clopidogrel Bisulfate (Clopidogrel) 75 Mg Tablet, 75 MG PO DAILY for 30 Days, #30 TAB Prov:CARLI FRIEND MD 05/13/18 Current Medications Sodium Chloride 1,000 ml @ 0 mls/hr Q0M IV ; Start 06/25/18 at 06:00; Stop 06/25/18 at 16:00 Meds reviewed: Yes Allergies Coded Allergies: No Known Allergy (Verified , 06/25/18) Allergies Reviewed: Yes Labs/Studies Labs Reviewed: Reviewed by anesthesiologist test: N/A Studies: ECG, CXR Pre-procedure Exam Airway: Adequate mouth opening, Adequate thyromental dist Mallampati: Mallampati II (dentures upper lower) Teeth: Normal Lung: Normal Heart: Normal ASA Physical Status ASA physical status: 3 Emergency: None Planned Anesthetic General/MAC: MAC, TIVA Planned Pain Management Parenteral pain med, Local by surgeon Pre-operative Attestations Prior to commencing anesthesia and surgery, the patient was re-evaluated, there was verification of: *The patient's identity *The results of appropriate recent lab work and preoperative vital signs *The above evaluation not changing prior to induction *Anesthetic plan, risk benefits, alternative and complications discussed with patient/family; questions answered; patient/family understands, accepts and wishes to proceed. JUANITA HERNANDEZ Jun 25, 2018 07:07
[2018-06-25] MEDS ORDERED: ACETAMINOPHEN 1000MG/100ML IV 100 ML IVPB PRN (07:30)
[2018-06-25] MEDS ORDERED: FENTAnyl 50 MCG/ML VIAL IV PRN ×2 (07:30)
[2018-06-25] MEDS ORDERED: ONDANSETRON 4 MG INJ IV PRN (07:30)
[2018-06-25] MEDS ORDERED: hydrALAzine 20 MG INJ ONE (08:17)
--- NOTE | 2018-06-25 08:52 | SIPON ---
Date/Time of Note Date/Time of Note DATE: 06/25/18 TIME: 08:51 Operative Report Preoperative Diagnosis EOL ICD , Isch CMy EF 35% # [id number] Postoperative Diagnosis same Operation/Procedure Performed ICD gen change Surgeon see signature line occupational therapy assistant none Anesthesia: MAC Estimated blood loss: minimal Transfusion Required none Specimen Bio ICD old Grafts/Implants none Complications none MAILE QUEEN MD Jun 25, 2018 08:52
[2018-06-25] MEDS: FENTAnyl 50 MCG/ML VIAL IV PRN ×2 (08:59→09:14)
[2018-06-25] MEDS ORDERED: morphine 2 MG INJ IV PRN (09:00)
--- NOTE | 2018-06-25 09:09 | SP ---
DATE OF PROCEDURE: 06/25/2018 REASON FOR IMPLANTATION: End of life of ICD. PREOPERATIVE DIAGNOSIS: Initial indication for implant, ischemic cardiomyopathy, ejection fraction l ess than 30%. POSTOPERATIVE DIAGNOSIS: Initial indication for implant, ischemic cardiomyopathy, ejection fraction less than 30%. PROCEDURE PERFORMED: Single chamber ICD generator change. DEVICE INFORMATION: The implanted device is a Biotronik Faina 7 VRT, serial #[id number]. The explant ed device is Lumax 540 VRT, serial #[id number], initially implanted in 08/2009. RV lead is a chronic l ead Biotronik Lumax lead, serial #[id number] threshold R-wave is 16.6 volts with a threshold of 0.4 vol ts at 0.8 msec. The lead impedance is 436 ohms. The shock impedance was 40 ohms. Setting VF detect ion 188. VT detection 167. There is ATP during charging with maximal output of 40 joules. DESCRIPTION OF PROCEDURE: The informed consent was obtained, the patient was brought into the operat ing room in fasting condition. Anesthesiologist supervised airway sedation. Antibiotics were given. Left side of the chest was prepped and draped in a sterile fashion, 1% lidocaine was used for local analgesia. Using #10 scalpel, a 3 cm incision was made. Using cautery and blunt dissection, the po cket was created. The patient had a fairly tough capsule for which the device was extracted. The ge nerator was detached from the chronic lead and was attached to the new device. The pocket was irriga kacy with antibiotic solution. The entire system was placed inside the pocket. Then, the skin was cl osed with multiple layers of 2-0 Vicryl sutures. Steri-Strips were applied on the incision. The pat ient does appear to have tolerated the procedure well. The plan is for her to be discharged home and will follow up on an outpatient basis. Dictated By: MAILE QUEEN MD ML/NTS Conf#: [id number] DID#: [id number]
[2018-06-25] MEDS ORDERED: OXYCODONE/ACETAMINOPHEN (5/325) TAB PO PRN ×2 (09:30)
--- NOTE | 2018-06-25 09:46 | PAC ---
Date/Time of Note Date/Time of Note DATE: 06/25/18 TIME: 09:46 Post-Anesthesia Notes Post-Anesthesia Note Last documented vital signs Vital Signs Date Temp Pulse Resp B/P (MAP) Pulse Ox O2 O2 Flow FiO2 Time Delivery Rate 06/25/18 82 19 141/78 96 Room Air 09:25 (99) 06/25/18 96.2 06:30 Activity: WNL Respiratory function: WNL Cardiovascular function: WNL Mental status: Baseline Pain reasonably controlled: Yes Hydration appropriate: Yes Nausea/Vomiting absent: Yes JUANITA HERNANDEZ Jun 25, 2018 09:46
[2018-06-25] MEDS ORDERED: CEFAZOLIN 1 GM/50 ML (PMX) 50 ML IVPB SCH ×2 (11:30→18:00)
[2018-06-25] MEDS ORDERED: CEFAZOLIN 1 GM INJ INJ ONE (12:00)
== END 2018-06-25 13:06 | disposition home or self-care (01) ==
LOC: SDS 05:45
PROVIDERS: ATTEND Internal Medicine Clinical Cardiac Electrophysiology
DX: Z45.02 Encounter for adjustment and management of automatic implantable cardiac defibrillator (principal); I11.0 Hypertensive heart disease with heart failure; I50.9 Heart failure, unspecified; I25.10 Atherosclerotic heart disease of native coronary artery without angina pectoris; I48.91 Unspecified atrial fibrillation; E78.5 Hyperlipidemia, unspecified; I25.2 Old myocardial infarction
CPT/HCPCS: 33262; 71045; 80053; 80061; 85025; 85610; 85730; 88300; 93005; J0360; J0690; J3010